=== PATIENT | male | born 1950 | race African-American/Black ===

== ENCOUNTER 2017-11-24 04:47 | Emergency (ER) | payer MEDICARE, BC ==
[2017-11-24] MEDS ORDERED: ACETAMINOPHEN 325 MG TABLET PO ONE (05:34)
[2017-11-24] MEDS ORDERED: IPRATROPIUM/ALBUTEROL 0.5-2.5 MG/3 ML AMPUL NEB ONE (05:35)
--- NOTE | 2017-11-24 05:37 | ER Document Report ---
ED Medical Screen (RME) - General Chief Complaint: Cold Symptoms Stated Complaint: COUGH,FEVER Time Seen by Provider: 11/24/17 05:30 Notes: 67-year-old male, chief complaint of 1 week of cough, chills, and shortness of breath on exertion. He states he is worsening and not improving and therefore came to be evaluated. He is coughing up white sputum. He denies chest pain outside of cough. He does not smoke, his only past medical history is hypertension and hyperlipidemia. at bedside. - Related Data Allergies/Adverse Reactions: No Known Allergies Allergy (Unverified 11/24/17 05:00) Past Medical History Renal/ Medical History: Denies: Hx Peritoneal Dialysis Physical Exam - Vital signs Vitals: Temp Pulse Resp BP Pulse Ox 100.1 F 95 20 132/72 H 94 11/24/17 05:05 11/24/17 05:05 11/24/17 05:05 11/24/17 05:05 11/24/17 05:05 - Respiratory Respiratory status: No respiratory distress. No: Labored, Tachypnea Breath sounds: Decreased air movement, Wheezing - Soft expiratory wheezes bilaterally Course - Re-evaluation Re-evalutation: Patient with some scattered coarse breath sounds and soft expiratory wheezes, oxygen 94% on room air, reported fevers and dyspnea on exertion for 1 week. Workup pending. - Vital Signs Vital signs: Temp Pulse Resp BP Pulse Ox 100.1 F 95 20 132/72 H 94 11/24/17 05:05 11/24/17 05:05 11/24/17 05:05 11/24/17 05:05 11/24/17 05:05
[2017-11-24 06:37] LABS: HEMATOCRIT 45.9 % (37.9-51.0); HEMOGLOBIN 15.6 g/dL (13.5-17.0); MEAN CORPUSCULAR HEMOGLOBIN 30.6 pg (27.0-33.4); MEAN CORPUSCULAR HGB CONC 34.1 g/dL (32.0-36.0); MEAN CORPUSCULAR VOLUME 90 fl (80-97); PLATELET COUNT 164 10^3/uL (150-450); RED BLOOD COUNT 5.11 10^6/uL (4.35-5.55); RED CELL DISTRIBUTION WIDTH 13.3 % (11.5-14.0); VENOUS BLOOD BASE EXCESS 4.8 mmol/L; VENOUS BLOOD HCO3 30.7 mmol/L (20-32); VENOUS BLOOD PCO2 49.3 mmHg (35-63); VENOUS BLOOD PH 7.41 (7.30-7.42); WHITE BLOOD COUNT 5.6 10^3/uL (4.0-10.5)
--- NOTE | 2017-11-24 06:46 | RADIOLOGY REPORT (SQ) ---
EXAM DESCRIPTION: CHEST PA/LAT CLINICAL HISTORY: shortness of breath, fever, cough COMPARISON: None. FINDINGS: Frontal and lateral views of the chest. The cardiomediastinal silhouette has normal size and contour. No consolidation, pneumothorax, or pleural effusion. Low lung volumes. Degenerative change of the spine. Leads overlie the chest. Upper abdominal soft tissues are unremarkable. IMPRESSION: 1. No acute pulmonary process identified.
[2017-11-24 06:58] LABS: ALANINE AMINOTRANSFERASE 53 U/L (21-72); ALBUMIN 4.4 g/dL (3.5-5.0); ALKALINE PHOSPHATASE 66 U/L (38-126); ANION GAP 14 (5-19); ASPARTATE AMINO TRANSFERASE 42 U/L (17-59); BILIRUBIN,DIRECT 0.1 mg/dL (0.0-0.4); BILIRUBIN,TOTAL 0.4 mg/dL (0.2-1.3); BLOOD UREA NITROGEN 16 mg/dL (7-20); CALCIUM 9.3 mg/dL (8.4-10.2); CARBON DIOXIDE 30 mmol/L (22-30); CHLORIDE 96 mmol/L (98-107); CREATINE KINASE 193 U/L (55-170); GLUCOSE 92 mg/dL (75-110); POTASSIUM 3.7 mmol/L (3.6-5.0); SODIUM 139.8 mmol/L (137-145); TOTAL PROTEIN 7.3 g/dL (6.3-8.2)
[2017-11-24] MEDS ORDERED: NORMAL SALINE 1000 ML 1,000 ML IV ONE (07:12)
[2017-11-24] MEDS ORDERED: KETOROLAC TROMETHAMINE INJ/PF 30 MG/1 ML SDV IV ONE (07:12)
[2017-11-24 07:14] LABS: ABSOLUTE LYMPHOCYTES# (MANUAL) 1.1 10^3/uL (0.5-4.7); ABSOLUTE MONOCYTES # (MANUAL) 1.1 10^3/uL (0.1-1.4); ABSOLUTE NEUTROPHILS# (MANUAL) 3.4 10^3/uL (1.7-8.2); BAND NEUTROPHILS % (MANUAL) 3 % (3-5); BASOPHILS % (MANUAL) 0 % (0-2); EOSINOPHILS % (MANUAL) 1 % (0-6); LYMPHOCYTES % (MANUAL) 17 % (13-45); MONOCYTES % (MANUAL) 19 % (3-13); SEGMENTED NEUTROPHILS % (MAN) 58 % (42-78); TOTAL CELLS COUNTED 100
[2017-11-24 07:15] LABS: PLATELET COMMENT ADEQUATE; RBC MORPHOLOGY COMMENT NORMO-CYTIC/CHROMIC
[2017-11-24] MEDS ORDERED: PREDNISONE 20 MG TABLET PO ONE (07:18)
--- NOTE | 2017-11-24 07:32 | ER Document Report ---
ED General - General Chief Complaint: Cold Symptoms Stated Complaint: COUGH,FEVER Time Seen by Provider: 11/24/17 05:30 - HPI Patient complains to provider of: Cough fever Notes: Patient coming in with symptoms flulike cough fever muscle aches and body aches ongoing for approximately 1 week dyspnea on exertion. Patient denies any recent travel denies any chest pain abdominal pain. Patient is coughing up white sputum denies any smoking history denies any other lung pathology. States past medical history is significant for hypertension hyperlipidemia. Patient resting comfortably upon my evaluation. Patient had already received a breathing treatment and Tylenol prior to my examination. - Related Data Allergies/Adverse Reactions: No Known Allergies Allergy (Unverified 11/24/17 05:00) Past Medical History - Social History Smoking Status: Never Smoker Chew tobacco use (# tins/day): No Frequency of alcohol use: None Drug Abuse: None Family History: Reviewed & Not Pertinent Patient has suicidal ideation: No Patient has homicidal ideation: No - Past Medical History Cardiac Medical History: Reports: Hx Hypercholesterolemia, Hx Hypertension Renal/ Medical History: Denies: Hx Peritoneal Dialysis Review of Systems - Review of Systems Constitutional: Fever EENT: No symptoms reported Cardiovascular: No symptoms reported Respiratory: Cough, Short of breath Gastrointestinal: No symptoms reported Genitourinary: No symptoms reported Male Genitourinary: No symptoms reported Musculoskeletal: No symptoms reported Skin: No symptoms reported Hematologic/Lymphatic: No symptoms reported Neurological/Psychological: No symptoms reported -: Yes All other systems reviewed and negative Physical Exam - Vital signs Vitals: Temp Pulse Resp BP Pulse Ox 100.1 F 95 20 132/72 H 94 11/24/17 05:05 11/24/17 05:05 11/24/17 05:05 11/24/17 05:05 11/24/17 05:05 Interpretation: Normal - General General appearance: Appears well, Alert - HEENT Head: Normocephalic, Atraumatic Eyes: Normal Pupils: PERRL - Respiratory Respiratory status: No respiratory distress Chest status: Nontender Breath sounds: Normal Chest palpation: Normal - Cardiovascular Rhythm: Regular Heart sounds: Normal auscultation Murmur: No - Abdominal Inspection: Normal Distension: No distension Bowel sounds: Normal Tenderness: Nontender Organomegaly: No organomegaly - Back Back: Normal, Nontender - Extremities General upper extremity: Normal inspection, Nontender, Normal color, Normal ROM , Normal temperature General lower extremity: Normal inspection, Nontender, Normal color, Normal ROM , Normal temperature, Normal weight bearing. No: Ricki's sign - Neurological Neuro grossly intact: Yes Cognition: Normal Orientation: AAOx4 Yaw Coma Scale Eye Opening: Spontaneous [place] Coma Scale Verbal: Oriented Yaw Coma Scale Motor: Obeys Commands [place] Coma Scale Total: 15 Speech: Normal Motor strength normal: LUE, RUE, LLE, RLE Sensory: Normal - Psychological Associated symptoms: Normal affect, Normal mood - Skin Skin Temperature: Warm Skin Moisture: Dry Skin Color: Normal Course - Re-evaluation Re-evalutation: 11/24/17 07:21 Patient received a breathing treatment prior to my evaluation lungs upon my evaluation are clear. Etiology patient symptoms more likely a viral source. No signs of any significant pathology and laboratory studies vital signs otherwise normal. Patient was encouraged take Tylenol Motrin around the clock to keep fever control. Will treat patient with albuterol and a short course of steroids. Patient is encouraged follow-up PCP - Vital Signs Vital signs: Temp Pulse Resp BP Pulse Ox 100.1 F 95 20 127/80 H 94 11/24/17 05:05 11/24/17 05:05 11/24/17 07:01 11/24/17 07:01 11/24/17 07:01 - Laboratory Result Diagrams: 11/24/17 06:10 11/24/17 06:10 Laboratory results interpreted by me: 11/24/17 11/24/17 06:10 06:10 Monocytes % (Manual) 19 H Chloride 96 L Creatine Kinase 193 H Discharge - Discharge Clinical Impression: Viral URI with cough Disposition: HOME, SELF-CARE Instructions: Fever ([facility]), Influenza ([facility]), Upper Respiratory Illness ([facility]), Viral Syndrome ([facility]) Additional Instructions: Your chest x-ray does not show any signs of pneumonia. More likely your symptoms are due to a virus. Please continue to drink plenty water to stay hydrated. Please use the inhaler that we gave you here in ER 2 puffs every 4 hours for shortness of breath. Also take steroids as prescribed. He may take [id number] cough medication I recommend using honey and your favorite drink to also help with cough suppression. The cough may last for 2-3 weeks. Her shortness of breath should improve and approximately another 45 days. Would recommend following up with your primary care physician in 3-5 days for reevaluation. Prescriptions: Benzonatate [Tessalon Perle 100 mg Capsule] 100 mg PO Q8HP PRN #40 cap PRN Reason: Ondansetron [Zofran Odt] 4 mg PO Q6 PRN #30 tab.rapdis PRN Reason: For Nausea/Vomiting Prednisone [Deltasone 20 mg Tablet] 3 tab PO DAILY 5 Days tablet Referrals: PALAK PUENTE MD [Primary Care Provider] - Follow up as needed
[2017-11-24] MEDS ORDERED: ALBUTEROL SULFATE HFA (90 MCG/PUFF) 8 GM MDI (1 MDI/ER DISP) IH ONE (07:35)
[2017-11-24 08:34] VITALS: BP 123/80
--- NOTE | 2017-11-24 10:47 | EKG REPORT ---
SEVERITY:- OTHERWISE NORMAL ECG - SINUS RHYTHM BORDERLINE LEFT AXIS DEVIATION : Confirmed by: Sourav Ann 24-Nov-2017 10:45:09
== END 2017-11-24 08:20 | disposition home or self-care (01) ==
LOC: ER 04:47
DX: J06.9 Acute upper respiratory infection, unspecified (principal); B97.89 Other viral agents as the cause of diseases classified elsewhere; R05 Cough; R50.9 Fever, unspecified; M79.1 Myalgia; R06.00 Dyspnea, unspecified
CPT/HCPCS: 93005; 99284; 36415; 87040; 82550; 85025; 80053; 84484; 82803; 71046; 93010; A9270 ×3; J1885; J7030; J3490; J7512; J7620

== ENCOUNTER 2019-09-24 09:20 | Emergency (ER) | payer MEDICARE, BC ==
[2019-09-24 09:26] VITALS: BP 149/78
[2019-09-24] MEDS ORDERED: IPRATROPIUM/ALBUTEROL 0.5-2.5 MG/3 ML AMPUL NEB ONE (10:44)
--- NOTE | 2019-09-24 10:51 | ER Document Report ---
ED Medical Screen (RME) - General Chief Complaint: Cold Symptoms Stated Complaint: COLD SYMPTOMS Time Seen by Provider: 09/24/19 10:35 Primary Care Provider: PALAK PUENTE MD [Primary Care Provider] - Follow up as needed - [facility] Notes: 09/24/19 10:44 69-year-old male with a medical hx of HTN only presents emergency room with chills, productive cough, chills, sore throat, weakness x 5 days ago. Symptoms become progressive pt denies hx of asthma, copd, non smoker. patient's vitals are pulse ox 92% RA and HR while at rest rest. Has tried [id number] cough medication without relief. Patient did not get a flu shot this year. Patient has been exposed to sick contacts. Denies any pedal edema. Denies chest pain,palpitations, shortness of breath, dyspnea, nausea, vomiting, diarrhea, abdominal pain, hematuria,blurred vision, double vision, loss of vision, speech changes, LH, dizziness, syncope, headaches, neck pain, bowel or bladder dysfunction, saddle anesthesia, I have greeted and performed a rapid initial assessment of this patient. A comprehensive ED assessment and evaluation of the patient, analysis of test results and completion of the medical decision making process will be conducted by additional ED providers. PHYSICAL EXAMINATION: GENERAL: Acutely ill-appearing, well-nourished and in mild distress. HEAD: Atraumatic, normocephalic. EYES: Pupils equal round extraocular movements intact, conjunctiva are normal. NECK: Normal range of motion CV: s1, s2 tachycardia LUNGS: Diminished breath sounds throughout Musculoskeletal: Normal range of motion NEUROLOGICAL: Normal speech, normal gait. SKIN: Warm, Dry, normal turgor, no rashes or lesions noted. - Related Data Allergies/Adverse Reactions: No Known Allergies Allergy (Unverified 11/24/17 05:00) Past Medical History - Past Medical History Cardiac Medical History: Reports: Hx Hypercholesterolemia, Hx Hypertension Renal/ Medical History: Denies: Hx Peritoneal Dialysis Physical Exam - Vital signs Vitals: Temp Pulse Resp BP Pulse Ox 99.2 F 104 H 18 149/78 H 97 09/24/19 09:26 09/24/19 09:26 09/24/19 09:26 09/24/19 09:26 09/24/19 09:26 Course - Vital Signs Vital signs: Temp Pulse Resp BP Pulse Ox 99.2 F 100 18 149/78 H 92 09/24/19 09:26 09/24/19 10:42 09/24/19 09:26 09/24/19 09:26 09/24/19 10:42 Doctor's Discharge - Discharge Referrals: PALAK PUENTE MD [Primary Care Provider] - Follow up as needed
[2019-09-24 11:16] LABS: ABSOLUTE BASOPHILS # (AUTO) 0.1 10^3/uL (0.0-0.2); ABSOLUTE EOSINOPHILS # (AUTO) 0.3 10^3/uL (0.0-0.6); ABSOLUTE LYMPHOCYTES (AUTO) 1.7 10^3/uL (0.5-4.7); ABSOLUTE MONOCYTES (AUTO) 1.4 10^3/uL (0.1-1.4); ABSOLUTE NEUT (AUTO) 5.3 10^3/uL (1.7-8.2); BASOPHILS % (AUTO) 0.6 % (0-2); EOSINOPHILS % (AUTO) 3.3 % (0-6); HEMATOCRIT 46.8 % (37.9-51.0); HEMOGLOBIN 16.2 g/dL (13.5-17.0); LYMPHOCYTES % (AUTO) 19.3 % (13-45); MEAN CORPUSCULAR HEMOGLOBIN 31.4 pg (27.0-33.4); MEAN CORPUSCULAR HGB CONC 34.6 g/dL (32.0-36.0); MEAN CORPUSCULAR VOLUME 91 fl (80-97); MONOCYTES % (AUTO) 16.4 % (3-13); PLATELET COUNT 187 10^3/uL (150-450); RED BLOOD COUNT 5.15 10^6/uL (4.35-5.55); RED CELL DISTRIBUTION WIDTH 13.3 % (11.5-14.0); SEGMENTED NEUTROPHILS % (AUTO) 60.4 % (42-78); TOTAL CELLS COUNTED % (AUTO) 100 %; WHITE BLOOD COUNT 8.8 10^3/uL (4.0-10.5)
[2019-09-24 11:33] LABS: A TYPE INFLUENZA AG NEGATIVE (NEGATIVE); B INFLUENZA AG NEGATIVE (NEGATIVE)
[2019-09-24 11:36] LABS: ALBUMIN 4.6 g/dL (3.5-5.0); ALKALINE PHOSPHATASE 93 U/L (38-126); ANION GAP 9 (5-19); ASPARTATE AMINO TRANSFERASE 31 U/L (17-59); BILIRUBIN,DIRECT 0.3 mg/dL (0.0-0.4); BILIRUBIN,TOTAL 0.8 mg/dL (0.2-1.3); BLOOD UREA NITROGEN 12 mg/dL (7-20); CALCIUM 9.8 mg/dL (8.4-10.2); CARBON DIOXIDE 36 mmol/L (22-30); CHLORIDE 95 mmol/L (98-107); GLUCOSE 97 mg/dL (75-110); POTASSIUM 3.5 mmol/L (3.6-5.0); TOTAL PROTEIN 8.3 g/dL (6.3-8.2)
--- NOTE | 2019-09-24 11:39 | RADIOLOGY REPORT (SQ) ---
EXAM DESCRIPTION: CHEST 2 VIEWS COMPLETED DATE/TIME: 09/24/2019 11:11 am REASON FOR STUDY: productive cough, pulse ox 92% RA COMPARISON: 11/24/2017 NUMBER OF VIEWS: Two view. TECHNIQUE: Frontal and lateral radiographic views of the chest acquired. LIMITATIONS: None. FINDINGS: LUNGS AND PLEURA: No opacities, masses or pneumothorax. No pleural effusion. MEDIASTINUM AND HILAR STRUCTURES: No masses. No contour abnormalities. HEART AND VASCULAR STRUCTURES: Heart enlarged without failure. Aorta normal for age. BONES: No acute findings. HARDWARE: None in the chest. OTHER: No other significant finding. IMPRESSION: CARDIAC ENLARGEMENT WITHOUT FAILURE. TECHNICAL DOCUMENTATION: JOB ID: [id number] [employer]- All Rights Reserved Reading location - IP/workstation name: [email or web address]
--- NOTE | 2019-09-24 14:21 | ER Document Report ---
ED General - General Chief Complaint: Weakness Stated Complaint: COLD SYMPTOMS Time Seen by Provider: 09/24/19 10:35 Primary Care Provider: PALAK PUENTE MD [Primary Care Provider] - Follow up as needed Notes: 69-year-old male presents emergency department complaining of sweats and chills associated with feeling generally unwell, rhinorrhea and a nonproductive cough for the proximately the past week. States that he has been using Mucinex without significant relief. States that the breathing treatments he was given by triage made him feel significantly better. Denies nausea or vomiting, denies diarrhea, denies any fevers. Admits exposure to influenza. - Related Data Allergies/Adverse Reactions: No Known Allergies Allergy (Unverified 11/24/17 05:00) Past Medical History - General Information source: Patient - Social History Smoking Status: Never Smoker Frequency of alcohol use: None Drug Abuse: None Family History: Reviewed & Not Pertinent Patient has suicidal ideation: No Patient has homicidal ideation: No - Past Medical History Cardiac Medical History: Reports: Hx Hypercholesterolemia, Hx Hypertension Renal/ Medical History: Denies: Hx Peritoneal Dialysis Review of Systems - Review of Systems Constitutional: See HPI, Chills, Diaphoresis, Malaise, Weakness EENT: See HPI, Nose congestion Cardiovascular: No symptoms reported Respiratory: See HPI, Cough, Short of breath Gastrointestinal: No symptoms reported -: Yes All other systems reviewed and negative Physical Exam - Vital signs Vitals: Temp Pulse Resp BP Pulse Ox 99.2 F 104 H 18 149/78 H 97 09/24/19 09:26 09/24/19 09:26 09/24/19 09:26 09/24/19 09:26 09/24/19 09:26 Interpretation: Tachycardic - Notes Notes: GENERAL: Alert, interacts well. No acute distress. HEAD: Normocephalic, atraumatic EYES: Pupils equal, round and reactive to light, extraocular movements intact. ENT: Oral mucosa moist, tongue midline. NECK: Full range of motion, supple, trachea midline. LUNGS: Trace remaining expiratory wheezing, no current respiratory distress. HEART: Regular rate and rhythm, no murmurs, gallops, rubs. ABDOMEN: Soft, nontender, nondistended, bowel sounds present in all 4 quadrants. EXTREMITIES: Moves all 4 extremities spontaneously, no edema, radial and dorsalis pedis pulses 2/4 bilaterally. No cyanosis. NEUROLOGICAL: Alert and oriented x3, normal speech. PSYCH: Normal mood, normal affect. SKIN: Warm, Dry, normal turgor, no rashes or lesions noted. Course - Re-evaluation Re-evalutation: 09/24/19 15:21 CBC unremarkable, CMP unremarkable, CXR negative for pneumonia, flu and strep swabs negative. Improved with albuterol, treat with steroids and SATX. D/C t home. - Vital Signs Vital signs: Temp Pulse Resp BP Pulse Ox 99.2 F 100 18 149/78 H 92 09/24/19 09:26 09/24/19 10:42 09/24/19 09:26 09/24/19 09:26 09/24/19 10:42 - Laboratory Result Diagrams: 09/24/19 10:50 09/24/19 10:50 Laboratory results interpreted by me: 09/24/19 09/24/19 10:50 10:50 [place] % (Auto) 16.4 H Potassium 3.5 L Chloride 95 L Carbon Dioxide 36 H Total Protein 8.3 H - EKG Interpretation by Me Additional EKG results interpreted by me: 09/24/19 14:21 EKG shows sinus rhythm at a rate of 97, left anterior hemiblock, no ST segment elevations or depressions, no T wave inversions per my interpretation. Isolated T wave inversions noted in aVL per my interpretation. Discharge - Discharge Clinical Impression: Acute wheezy bronchitis Condition: Stable Disposition: HOME, SELF-CARE Additional Instructions: Bronchitis with Bronchospasm (Wheezing) You have bronchitis with bronchospasm (wheezing). Sometimes people develop wheezing with a chest cold. This occurs either because of an underlying tendency toward asthma or because the virus itself irritates the bronchial tubes. This irritation causes cough, shortness of breath, and wheezing. Emergency treatment of bronchospasm may include adrenaline shots or bronchodilator aerosol. You may feel lightheaded and have a rapid pulse for an hour or two. Rest and get plenty of fluids. At home, we'll treat you with a bronchodilator inhaler. Corticosteroids may be required for some patients. Until you recover, avoid chemical fumes, dusts, pollens, and exercising in very cold or dry air. If you smoke, stop now! Most cases of bronchitis get better without antibiotics. We prescribe antibiotics when we believe bacteria are damaging your airways, or if there's h igh risk the bronchitis will worsen into pneumonia. Increase your fluid intake. A cool mist humidifier may make your lungs more comfortable. An expectorant (cough medicine that loosens phlegm) can help. Repeated episodes of bronchitis and bronchospasm may result in lung damage -- for example, chronic bronchitis, recurrent pneumonias, or emphysema. If you develop a fever, increased wheezing, chest pain, or severe shortness of breath, you should contact the doctor immediately. You may use the inhaler 2 puffs every 4 hours as needed. Prescriptions: Benzonatate [Tessalon Perles 100 mg Capsule] 100 mg PO Q8HP PRN #40 capsule PRN Reason: Prednisone [Deltasone 20 mg Tablet] 2 tab PO DAILY 5 Days tablet Referrals: PALAK PUENTE MD [Primary Care Provider] - Follow up as needed
[2019-09-24] MEDS ORDERED: BENZONATATE 100 MG CAPSULE PO ONE (15:07)
[2019-09-24] MEDS ORDERED: ALBUTEROL SULFATE HFA (90 MCG/PUFF) 8 GM MDI (1 MDI/ER DISP) IH ONE (15:07)
[2019-09-24] MEDS ORDERED: PREDNISONE 20 MG TABLET PO ONE (15:07)
--- NOTE | 2019-09-24 21:59 | EKG REPORT ---
SEVERITY:- OTHERWISE NORMAL ECG - SINUS RHYTHM LEFT AXIS DEVIATION : Confirmed by: Sourav Ann 24-Sep-2019 21:58:31
== END 2019-09-24 15:33 | disposition home or self-care (01) ==
LOC: ER 09:20
DX: J20.9 Acute bronchitis, unspecified (principal); R06.2 Wheezing; R53.1 Weakness; E78.00 Pure hypercholesterolemia, unspecified; I10 Essential (primary) hypertension
CPT/HCPCS: 93005; 94640; 99285; 36415; 87070; 87880; 85025; 80053; 87804; 71046; 93010; A9270 ×4; J3490; J7512; J7620